=== PATIENT | female | born 1960 | race Caucasian/White ===

== ENCOUNTER 2017-05-30 14:00 | Emergency (ER) | payer MEDICAID ==
[~2017-05-30] VITALS: Ht 157.5 cm; Wt 58.8 kg
[2017-05-30 14:02] VITALS: Ht 157.5 cm; Wt 58.8 kg
[2017-05-30] MEDS ORDERED: BELLADONNA/PHENOBARBITAL TAB PO STA (16:05)
[2017-05-30] MEDS ORDERED: SOD CHLORIDE 0.9% 1,000 ML IV STA (16:05)
[2017-05-30] MEDS ORDERED: KETOROLAC 15 MG INJ IV STA (16:05)
[2017-05-30] MEDS ORDERED: LIDOCAINE/MYLANTA 40 ML BTL PO STA (16:05)
[2017-05-30 16:29] LABS: BASOPHILS % 0.6 % (0.0-2.0); EOSINOPHILS # 0.1 10^3/ul (0.0-0.5); EOSINOPHILS % 1.4 % (0.0-7.0); HEMATOCRIT 33.1 % (37.0-47.0); HEMOGLOBIN 10.4 g/dl (12.0-16.0); LYMPHOCYTES # 2.1 10^3/ul (0.8-2.9); LYMPHOCYTES % 30.5 % (15.0-51.0); MEAN CORPUSCULAR HEMOGLOBIN 23.5 pg (29.0-33.0); MEAN CORPUSCULAR HGB CONC 31.4 g/dl (32.0-37.0); MEAN CORPUSCULAR VOLUME 74.7 fl (82.0-101.0); MEAN PLATELET VOLUME 10.8 fl (7.4-10.4); MONOCYTE # 0.4 10^3/ul (0.3-0.9); MONOCYTES % 6.3 % (0.0-11.0); NEUTROPHIL # 4.3 10^3/ul (1.6-7.5); NEUTROPHILS % 61.1 % (39.0-77.0); PLATELET COUNT 295 10^3/UL (140-415); RED BLOOD COUNT 4.43 10^6/ul (4.20-5.40); RED CELL DISTRIBUTION WIDTH 15.4 % (11.5-14.5)
[2017-05-30 16:47] LABS: ALBUMIN 3.9 g/dl (3.3-4.9); ALBUMIN/GLOBULIN RATIO 1.05; BILIRUBIN,INDIRECT 0.4 mg/dl (0-1.1); BILIRUBIN,TOTAL 0.4 mg/dl (0.2-1.3); CALCIUM 8.8 mg/dl (8.4-10.2); CREATININE 0.67 mg/dl (0.44-1.00); POTASSIUM 3.9 mmol/L (3.5-5.1); TOTAL PROTEIN 7.6 g/dl (6.1-8.1)
--- NOTE | 2017-05-30 16:58 | ERD ---
ER Documentation Chief Complaint Chief Complaint ABD PAIN X2 WEEKS, DIARRHEA, NO VOMITING HPI 57-year-old woman complains of left-sided abdominal pain and cramping as well as rectal pain 2 weeks with intermittent diarrhea. Patient denies anogenital intercourse or rectal discharge. She states the abdominal pain is nonexertional nonradiating, she has had no blood per rectum, no fevers or chills, no weight loss, no recent antibiotic use. Patient denies recent travel. Patient has had no chest pain or shortness of breath. Patient denies dysuria. ROS All systems reviewed and are negative except as per history of present illness. Medications Home Meds Active Scripts Ibuprofen* (Ibuprofen*) 600 Mg Tablet, 600 MG PO Q8 for PAIN AND/OR INFLAMMATION , #30 TAB Prov:NORM CUNHA MD 05/30/17 Ciprofloxacin Hcl* (Ciprofloxacin Hcl*) 500 Mg Tablet, 500 MG PO BID for 7 Days , TAB Prov:NORM CUNHA MD 05/30/17 Allergies Allergies: Coded Allergies: No Known Allergy (Unverified , 05/30/17) PMhx/Soc None Medical and Surgical Hx: pt denies Medical Hx, pt denies Surgical Hx History of Surgery: No Anesthesia Reaction: No Hx Neurological Disorder: No Hx Respiratory Disorders: No Hx Cardiac Disorders: No Hx Psychiatric Problems: No Hx Miscellaneous Medical Probl: No Hx Alcohol Use: No Hx Substance Use: No Hx Tobacco Use: No Smoking Status: Never smoker FmHx Family History: No diabetes Physical Exam Vitals Vital Signs Date Time Temp Pulse Resp B/P Pulse Ox O2 Delivery O2 Flow Rate FiO2 05/30/17 16:25 98.0 89 18 123/74 97 Room Air 05/30/17 14:02 98.7 88 17 145/68 100 Physical Exam GENERAL: Well-developed, well-nourished, well-hydrated, in no apparent distress , looks nontoxic in appearance HEENT: Moist mucous membranes, pink conjunctiva, no cervical spine tenderness or step-off deformities, no goiter, no jaundice or icterus, extraocular movements intact without pain. No submandibular induration, and no pharyngeal erythema NEURO: Alert and oriented 3, cranial nerves II through XII intact bilaterally, pupils equal round reactive to light, no focal deficits or facial asymmetry, sensation intact distally Strength 5/5 in upper and lower extremities bilaterally CARDIAC: Regular rate and rhythm, no murmurs rubs or gallops LUNGS: Clear bilaterally no wheezing crackles or stridor ABDOMEN: Soft nontender, no guarding, no rigidity, no rebound, no psoas sign no obturator sign. Normoactive bowel sounds SKIN: Warm and dry to touch, no abrasions, contusions, or hematomas, no lacerations, no ecchymosis, no target lesions, and without ulcers EXTREMITIES: No clubbing cyanosis or edema, calves are bilaterally symmetrical, no Homans sign, no popliteal cord sign. Distal pulses equal and bilateral PSYCH: Normal affect without agitation or irritability Result Diagram: 05/30/17 1615 05/30/17 1615 Results 24 hrs Laboratory Tests Test 05/30/17 16:15 05/30/17 16:32 White Blood Count 7.010^3/ul Red Blood Count 4.4310^6/ul Hemoglobin 10.4g/dl Hematocrit 33.1% Mean Corpuscular Volume 74.7fl Mean Corpuscular Hemoglobin 23.5pg Mean Corpuscular Hemoglobin Concent 31.4g/dl Red Cell Distribution Width 15.4% Platelet Count 54540^3/UL Mean Platelet Volume 10.8fl Neutrophils % 61.1% Lymphocytes % 30.5% Monocytes % 6.3% Eosinophils % 1.4% Basophils % 0.6% Nucleated Red Blood Cells % 0.0/100WBC Neutrophils # 4.310^3/ul Lymphocytes # 2.110^3/ul Monocytes # 0.410^3/ul Eosinophils # 0.110^3/ul Basophils # 0.010^3/ul Nucleated Red Blood Cells # 0.010^3/ul Sodium Level 142mmol/L Potassium Level 3.9mmol/L Chloride Level 107mmol/L Carbon Dioxide Level 26mmol/L Anion Gap 13 Blood Urea Nitrogen 12mg/dl Creatinine 0.67mg/dl Glucose Level 85mg/dl Calcium Level 8.8mg/dl Total Bilirubin 0.4mg/dl Direct Bilirubin 0.00mg/dl Indirect Bilirubin 0.4mg/dl Aspartate Amino Transf (AST/SGOT) 21IU/L Alanine Aminotransferase (ALT/SGPT) 32IU/L Alkaline Phosphatase 95IU/L Total Protein 7.6g/dl Albumin 3.9g/dl Globulin 3.70g/dl Albumin/Globulin Ratio 1.05 Lipase 65U/L Urine Color STRAW Urine Clarity CLEAR Urine pH 6.0 Urine Specific [place] 1.006 Urine Ketones NEGATIVEmg/dL Urine Nitrite NEGATIVEmg/dL Urine Bilirubin NEGATIVEmg/dL Urine Urobilinogen NEGATIVEmg/dL Urine Leukocyte Esterase NEGATIVELeu/ul Urine Microscopic RBC 0/HPF Urine Microscopic WBC 2/HPF Urine Bacteria FEW/HPF Urine Hemoglobin 1+mg/dL Urine Glucose NEGATIVEmg/dL Urine Total Protein NEGATIVEmg/dl Current Medications Medications (Trade) Dose Ordered Sig/Jethro Route PRN Reason Start Time Stop Time Status Last Admin Dose Admin Sodium Chloride (NS) 1,000 ml @ 1,000 mls/hr Q1H STAT IV 05/30/17 16:05 05/30/17 17:04 DC 05/30/17 17:06 Miscellaneous Medication (Gi Cocktail (2)) 40 ml ONCE STAT PO 05/30/17 16:05 05/30/17 16:07 DC 05/30/17 17:04 [place]/ Phenobarbital () 2 tab ONCE STAT PO 05/30/17 16:05 05/30/17 16:07 DC 05/30/17 17:07 Ketorolac Tromethamine (Toradol) 15 mg ONCE STAT IV 05/30/17 16:05 05/30/17 16:07 DC 05/30/17 17:05 Procedures/MDM IV line was established patient was placed on cardiac specialist rhythm strip revealed a sinus rhythm at about 80 bpm with upright P and T waves. Patient was afebrile I administered 1 L normal saline intravenously, Toradol 15 mg IV 1 and GI cocktail 30 cc p.o. CBC and electrolytes were normal, liver function tests were normal, urine analysis was negative for infection. CT scan of the abdomen and pelvis was performed, given the patient's symptoms. IMPRESSION: Large amount of stool throughout the colon and rectum. There is focal short segment rectal wall thickening with associated perirectal/presacral inflammatory stranding. The findings can be seen with proctitis in the appropriate clinical setting, however, correlation with future colonoscopy is recommended as an underlying rectal neoplasm or stricture cannot be excluded. Differential diagnoses considered, included but not limited to acute coronary syndrome, pulmonary embolism, aortic dissection, abdominal aortic aneurysm, sepsis, stroke, meningitis, encephalitis, pneumonia, appendicitis, cholecystitis , bowel obstruction, pyelonephritis, nephrolithiasis, cystitis, as well as metabolic, hematologic, and electrolyte abnormalities. As well as abscess, cellulitis, fractures, and dislocations. Patient feels much better at this time, and vital signs are normal, symptoms have improved. I did give strict instructions to return to the ED if symptoms continue or worsen, patient will otherwise follow-up with primary care physician. Patient understood instructions and agreed to plan. Disclaimer: Inadvertent spelling and grammatical errors are likely due to EHR/ dictation software use and do not reflect on the overall quality of patient care. Also, please note that the electronic time recorded on this note does not necessarily reflect the actual time of the patient encounter. Departure Diagnosis: Primary Impression: Abdominal pain Abdominal location: left lower quadrant Qualified Code: R10.32 - Left lower quadrant pain Additional Impression: Proctitis Condition: Good NORM CUNHA MD May 30, 2017 16:58
[2017-05-30 17:04] LABS: ADD UMIC YES; UR ASCORBIC ACID NEGATIVE (NEGATIVE); UR BACTERIA FEW /HPF (NONE SEEN); UR BILIRUBIN (Dip) NEGATIVE (NEGATIVE); UR BLOOD (Dip) 1+ mg/dL (NEGATIVE); UR CLARITY CLEAR (CLEAR); UR COLOR STRAW (YELLOW); UR GLUCOSE (Dip) NEGATIVE (NEGATIVE); UR KETONES (Dip) NEGATIVE (NEGATIVE); UR LEUKOCYTE ESTERASE (Dip) NEGATIVE Leu/ul (NEGATIVE); UR NITRITE (Dip) NEGATIVE (NEGATIVE); UR RBC 0 /HPF (0-5); UR SPECIFIC GRAVITY (Dip) 1.006 (1.003-1.030); UR TOTAL PROTEIN (Dip) NEGATIVE (NEGATIVE); UR UROBILINOGEN (Dip) NEGATIVE (NEGATIVE)
--- NOTE | 2017-05-30 17:13 | RADRPT ---
PROCEDURE: CT Abdomen and Pelvis without contrast. CLINICAL INDICATION: Abdominal pain TECHNIQUE: CT scan of the abdomen and pelvis was performed on a multidetector high-resolution CT s [place] without intravenous contrast. Coronal and sagittal reformatted images were obtained from the axial source images. Images were reviewed on a high-resolution PACS workstation. The total exam CTD I equals 8mGy and the total exam DLP equals 426mGy-cm. One or more of the following dose reduction t echniques were used: Automated exposure control, Adjustment of the mA and/or kV according to patient size, and/or use of iterative reconstruction technique. DICOM images are available. COMPARISON: None. FINDINGS: Evaluation of the solid organs is limited given the lack of intravenous contrast administration. The lung bases are clear. The liver, pancreas, spleen, and adrenals are grossly unremarkable. No focal pericholecystic inflammatory changes. No hydronephrosis. No renal or ureteral stone. No evidence of small bowel obstruction. Large amount of stool throughout the colon and rectum. There is focal short segment rectal wall thickening which is indeterminate. Perirectal/presacral inflamma tory stranding is seen. Normal-caliber appendix. No significant retroperitoneal lymphadenopathy, ascites or evidence of pneumoperitoneum. Aortoiliac atherosclerosis. Mild degenerative change of the spine. Bilateral sacroiliac joint degenerative changes, left greater than right. IMPRESSION: Large amount of stool throughout the colon and rectum. There is focal short segment rectal wall thi ckening with associated perirectal/presacral inflammatory stranding. The findings can be seen with p roctitis in the appropriate clinical setting, however, correlation with future colonoscopy is recomm ended as an underlying rectal neoplasm or stricture cannot be excluded. RPTAT: AA .Alejandro Diaz MD, Date Time Electronically viewed and signed by .Alejandro Diaz MD, MD on 05/30/2017 17:13 .T/
[2017-05-30] MEDS ORDERED: IBUP-1542 PO (17:18)
[2017-05-30] MEDS ORDERED: CIPR500T4 PO (17:18)
[2017-05-30 17:35] VITALS: BP 132/75; PULSE 74; RESP 16; TEMP 98.1
== END 2017-05-30 17:38 | disposition home or self-care (01) ==
LOC: E/R 14:00
DX: K62.89 Other specified diseases of anus and rectum (principal); R10.32 Left lower quadrant pain
CPT/HCPCS: 36415; 74176; 80053; 81001; 83690; 85025; 96374; J1885; J7030; Z7502; Z7610

== ENCOUNTER 2017-07-30 22:48 | Emergency (ER) | END 2017-07-31 01:16 | disposition home or self-care (01) ==